=== PATIENT | male | born 1975 | race Caucasian/White ===

== ENCOUNTER → 2019-09-20 09:54 | Outpatient (CLI) | payer OTHER, SELFPAY ==
[2019-09-20 12:57] LABS: Anion Gap 7 (5-15); BUN 18 mg/dL (7-18); Calcium,Total 9.9 mg/dL (8.5-10.1); Chloride 102 mmol/L (98-107); Creatinine, Serum 0.95 mg/dL (0.70-1.30); EST Glomerular Filtration Rate 92 mL/min (>60); Est Glom Filt Rate - Afr Amer 111 mL/min (>60); Glucose 134 mg/dL (74-106); Potassium 4.3 mmol/L (3.5-5.1); Sodium Level 135 mmol/L (136-145)
== END ==
PROVIDERS: PCP Family Medicine; Visit Provider Family Medicine
DX: E11.9 Type 2 diabetes mellitus without complications (principal)
CPT/HCPCS: 36415; 80048

== ENCOUNTER → 2020-03-18 11:56 | Outpatient (CLI) | payer SELFPAY ==
[2015-07-21 08:45] VITALS: BMI 37.2
[2020-03-18 16:01] LABS: AST(SGOT) 24 U/L (15-37); Alanine Aminotransfer ALT/SGPT 60 U/L (16-61); Albumin, Serum 3.9 g/dL (3.2-5.0); Alkaline Phosphatase 224 U/L (45-117); Anion Gap 8 (5-15); BUN 14 mg/dL (7-18); BUN/Creat Ratio 15.6 RATIO (10-20); Calcium,Total 9.9 mg/dL (8.5-10.1); Chloride 99 mmol/L (98-107); EST Glomerular Filtration Rate 98 mL/min (>60); Est Glom Filt Rate - Afr Amer 118 mL/min (>60); Globulin 4.1 g/dL (2.2-4.2); Glucose 171 mg/dL (74-106); Potassium 3.7 mmol/L (3.5-5.1); Rheumatoid Factor < 10.0 IU/mL (<15); Sodium Level 136 mmol/L (136-145); Thyroid Stim Hormone (TSH) 1.11 uIU/mL (0.358-3.74)
[2020-03-18 16:07] LABS: Erythrocyte Sedimentation Rate 18 mm/hr (0-15)
[2020-03-20 16:08] LABS: Anti-Centromere B Ab <0.2 AI (0.0-0.9); Anti-Chromatin <0.2 AI (0.0-0.9); Anti-Jo <0.2 AI (0.0-0.9); Anti-Scleroderma-70 AB <0.2 AI (0.0-0.9); Anti-ribosomal P Antibodies <0.2 AI (0.0-0.9); RNP Ab 0.2 AI (0.0-0.9); SJOGREN'S Anti-SS-A test < 0.2 AI (0.0-0.9); SJOGREN'S Anti-SS-B test < 0.2 AI (0.0-0.9); Smith Ab <0.2 AI (0.0-0.9); Smith/RNP Ab <0.2 AI (0.0-0.9)
[2020-03-20 18:44] LABS: Anti-dsDNA Ab 1 IU/mL (0-9)
[2020-03-21 08:40] LABS: CCP IgG Antibodies 28 units (0-19)
== END ==
PROVIDERS: PCP Family Medicine; Visit Provider Family Medicine
DX: M06.4 Inflammatory polyarthropathy (principal)
CPT/HCPCS: 36415; 80053; 84443; 85652; 86038; 86140; 86200; 86225; 86235; 86431

== ENCOUNTER → 2023-06-13 | Outpatient (CLI) | payer OTHER, SELFPAY ==
[2023-06-13 07:40] LABS: Absolute Lymphocyte Count 1.69 X10^3/uL (0.83-4.51); Absolute Neutrophil Count 3.4 X10^3/uL (2.0-7.7); Basophil# 0.05 X10^3/uL; Basophil% 0.9 % (0-1); Eosinophil# 0.07 X10^3/uL; Eosinophils% 1.2 % (0-5); Hemoglobin 14.8 g/dL (13.0-16.5); Lymphocyte # 1.69 X10^3/ul (0.83-4.51); Lymphocyte % 29.6 % (19-41); Mean Corp Hgb Conc 33.6 g/dL (32-36); Mean Corpuscular Hgb 28.5 pg (27.0-32.0); Mean Corpuscular Volume 84.8 fL (80-94); Mean Platelet Vol. 10.7 fl (6.2-12.0); Monocyte# 0.45 X10^3/uL; Monocyte% 7.9 % (0-10); NRBC Flagged by Analyzer 0 % (0-5); Neutrophil # 3.43 X10^3/uL (2.7-7.7); Platelet Count 201 K/mm3 (150-450); RBC Distribution Width CV 12.4 % (11.6-14.6); RBC Distribution Width SD 38.3 fl (35.1-43.9); Red Blood Count 5.19 M/mm3 (4.6-6.2); White Blood Count 5.7 K/mm3 (4.4-11.0)
[2023-06-13 08:14] LABS: ALB/GLOB Ratio 1.4 RATIO (0.9-2.4); AST(SGOT) 43 U/L (15-37); Alanine Aminotransfer ALT/SGPT 95 U/L (16-61); Albumin, Serum 4.6 g/dL (3.2-5.0); Alkaline Phosphatase 97 U/L (45-117); Anion Gap 4 (5-15); BUN 25 mg/dL (7-18); BUN/Creat Ratio 28.3 RATIO (10-20); Calcium,Total 9.7 mg/dL (8.5-10.1); Chloride 105 mmol/L (98-107); Cholesterol 213 mg/dL (200); Creatinine, Serum 0.88 mg/dL (0.70-1.30); EST Glomerular Filtration Rate 98 mL/min (>60); Est Glom Filt Rate - Afr Amer 119 mL/min (>60); Globulin 3.4 g/dL (2.2-4.2); Glucose 162 mg/dL (74-106); High Density Lipoprotein 43 mg/dL; Potassium 4.5 mmol/L (3.5-5.1); Sodium Level 135 mmol/L (136-145); Triglycerides 160 mg/dL; Very Low Density Lipoprotein 32 mg/dL (5-40)
== END | disposition home or self-care (01) ==
LOC: LAB 07:23
PROVIDERS: PCP Nurse Practitioner Family; Referring Provider Nurse Practitioner Family; Visit Provider Nurse Practitioner Family
DX: Z00.01 Encounter for general adult medical examination with abnormal findings (principal); E11.9 Type 2 diabetes mellitus without complications
CPT/HCPCS: 36415; 80053; 80061; 85025

== ENCOUNTER 2023-07-20 07:00 | Emergency (ER) | payer OTHER, SELFPAY ==
[2023-07-20 07:01] VITALS: BP 154/91; PULSE 78; RESP 16; TEMP 36.6; O2SAT 97; BMI 35.1
--- OUTSIDE RECORDS SUMMARY | 2023-07-20 07:26 | XMS RPT_ITS | CCD ---
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 Name Role Phone KHADRA GARCIA Admitting Unavailable KHADRA GARCIA Attending Unavailable KHADRA GARCIA Primary Care Unavailable SALEEM HANNON MD Attending Unavailable Problems Problem Classification Problem Date Documented Da te Episodic/Chronic Immunizations and screening for infectious disease (1 source) Encounter for observation for suspected exposure to other biological agents ruled out; Translations: [Encounter for observation for suspected exposure to other biological agents ruled out] Onset: 10-17-2019 Episodic Malaise and fatigue (2 sources) Other fatigue; Translations: [Other fatigue] Onset: 10-17-2019 Episodic Open wounds of extremities (1 source) Laceration of forearm; Translations: [Laceration without foreign body of unspecified forearm, initial encounter] Onset: 01-21-2023 Episodic Vital Signs Date Time Vital Sign Value Performing Clinician Faci lity 01-21-2023 10:07-0400 Blood Pressure Location SALEEM HANNON MD [facility] 01-21-2023 10:07-0400 Body temperature 97.7 [degF] SALEEM HANNON MD [facility] 01-21-2023 10:07-0400 Diastolic Blood Pressure Non-Invasive 95 1 SALEEM HANNON MD [facility] 01-21-2023 10:07-0400 Heart rate 71 /min SALEEM HANNON MD [facility] 01-21-2023 10:07-0400 Respiratory rate 16 /min SALEEM HANNON MD [facility] 01-21-2023 10:07-0400 Systolic Blood Pressure Non-Invasive 160 1 SALEEM HANNON MD [facility] Encounters Encounter Date Encounter Type Care Provider Facility Start: 01-21-2023 End: 01-21-2023 Emergency department patient visit SALEEM HANNON MD Facility:B Start: 01-21-2023 End: 01-21-2023 Emergency department patient visit SALEEM HANNON MD [facility] Start: 10-17-2019 End: 10-17-2019 Patient encounter procedure KHADRA Wasserman [facility] Immunizations Immunization Date Immunization Notes Care Provider Fa cility 01-21-2023 tetanus toxoid, redu torie diphtheria toxoid, and acellular pertussis vaccine, adsorbed SALEEM HANNON MD [facility] Payers Date Payer Category Payer Unknown [id number] 1975 Unknown [id number] Social History Date Type Detail Facility Tobacco smoking status No Smoking Status Entered [facility] Sex Assigned At Male [facility] Functional Status Date Assessment Result Facility 01-21-2023 Functional Status Assistive Device None [facility] Mental Status Date Assessment Result Facility 01-21-2023 Mental Status Oriented x 4 [facility] Discharge instructions 01-21-2023 Note Date & Type Note Facility 01-21-2023 Hospital Discharg e instructions Patient Education 01/21/2023 10:29:36 Wound Care Wound Care Taking proper care of your wound will help it heal. Your healthcare provider may show you how to clean and dress the wound. He or she will also explain how to tell if the wound is healing normally. If you are unsure of how to take care of the wound, be sure to clarify what dressing to use and how often you should change the bandages. Here are the basic steps. A wound that's not healing normally may be dark in color or have white streaks. Wash your hands Tips for washing your hands include: Use liquid soap and lather for 2 minutes. Scrub between your fingers and under your nails. Rinse with warm water, keeping your fingers pointing down. Use a paper towel to dry your hands and to turn off the faucet. Remove the used dressing Here are suggestions for removing the dressing: If dressing changes cause you pain, be sure to take your pain medicine as prescribed by your healthcare provider 30 minutes before dressing changes. Set up your supplies. Put on disposable gloves if you re dressing a wound for someone else or your wound is infected. Loosen the tape by pulling gently toward the wound. Gently take off the old dressing. If the dressing is stuck to the wound, moisten it with saline (if available) or clean water. If you have a drain or tube in the wound, be careful not to pull on it. Remove the dressing 1 layer at a time and put it in a plastic bag. Seal the bag and put it in the trash. Remove your gloves. Inspect and dress the wound Check the wound carefully: Each time you change the dressing, check the wound carefully to be sure it s healing normally by making sure your wound appears to be pink and moist, and is free of infection. Wash your hands again. Put on a new pair of gloves. Clean and dress the wound as directed by your healthcare provider or nurse. Don't put anything in the wound that is not prescribed or directed by your healthcare provider. If you have a drain or tube, be careful not to pull on it. Make sure to secure the drain or tube as well. Put all unused supplies in a clean plastic bag. Seal the bag and store it in a clean, dry area between dressing changes. Be sure to wash your hands again. Call your healthcare provider Call your healthcare provider if you see any of the following signs of a problem: Bleeding that soaks the dressing Earl fluid weeping from the wound Increased drainage or drainage that is yellow, yellow-green, or foul-smelling Increased swelling or pain, or redness or swelling in the skin around the wound A change in the color of the wound, or if streaks develop in a direction away from the wound The area between any stitches opens up An increase in the size of the wound A fever of 100.4 F (38 C) or higher, or as directed by your healthcare provider Chills, increased fatigue, or a loss of appetite [id number] [employer]. [address] [place] [address]. All rights reserved. This information is not intended as a substitute for professional medical care. Always follow your healthcare professional's instructions. 01/21/2023 10:25:40 LACERATION, Extrem (suture, staple or tape) Extremity Laceration (Sutures, Lulú, or Tape) A laceration is a cut through the skin. This will usually require stitches (sutures) or lulú if it is deep. Minor cuts may be treated with surgical tape closures. Home care The following guidelines will help you care for your laceration at home: Keep the wound clean and dry. If a bandage was applied and it becomes wet or dirty, replace it. Otherwise, leave it in place for the first 24 hours, then change it once a day or as directed. If stitches or lulú were used, clean the wound daily: After removing the bandage, wash the area with soap and water. Use a wet cotton swab to loosen and remove any blood or crust that forms. After cleaning, keep the wound clean and dry. Talk with your doctor before applying any antibiotic ointment to the wound. Reapply the bandage. You may remove the bandage to shower as usual after the first 24 hours, but do not soak the area in water (no swimming) until the stitches or lulú are removed. If surgical tape closures were used, keep the area clean and dry. If it becomes wet, blot it dry with a towel. The doctor may prescribe an antibiotic cream or ointment to prevent infection. Do not stop taking this medication until you have finished the prescribed course or the doctor tells you to stop. The doctor may also prescribe medications for pain. Follow the doctor s instructions for taking these medications. If you have chronic liver or kidney disease or ever had a stomach ulcer or GI bleeding, talk with your doctor before using these medicines. Follow-up care Follow up with your health care provider. Most skin wounds heal within ten days. However, an infection may sometimes occur despite proper treatment. Therefore, check the wound daily for the signs of infection listed below. Stitches and lulú should be removed within 7 14 days. If surgical tape closures were used, you may remove them after 10 days, if they have not fallen off by then. Notify your doctor if you notice persistent numbness or weakness in the injured extremity. (Note: A radiologist will review any X-rays that were taken. We will notify you of any new findings that may affect your care.) When to seek medical advice Call your health care provider right away if any of these occur: Increasing pain in the wound Redness, swelling, or pus coming from the wound Fever of 100.4 F (38 C) or higher, or as directed by your health care provider If stitches or lulú come apart or fall out before your next appointment If the surgical tape closures fall off within seven days, or the wound edges re-open Bleeding not controlled by direct pressure [id number] [employer]. [address] [place] [address]. All rights reserved. This information is not intended as a substitute for professional medical care. Always follow your healthcare professional's instructions. Follow Up Care 01/21/2023 10:04:23 With:TRACI OLSEN DO Address: [address] [place] [id number] [phone] When: Unknown Comments:Follow-up in 10 days for suture removal. [facility] Emergency department Discharge summary 01-21-2023 Note Date & Type Note Facility 01-21-2023 Emergency department Discharge summary Discharge Instructions Thank you for allowing [facility] to assist you with your healthcare needs. The following is important discharge information regarding your hospital visit. Diagnosis from Today's Visit Laceration of forearm Arm laceration What to Do Next Instructions from Your Care Team No qualifying data available. Post Acute Orders No qualifying data available. You Need to Schedule the Following Appointments Follow Up with TRACI OLSEN DO When Why: Follow-up in 10 days for suture removal. Where: [address] [place] [phone] Allergies NKA Immunizations This Visit Given Vaccine Datetetanus/diphth/pertuss (Tdap) adult/adol 01/21/2023 Medications Please ask your primary doctor or pharmacist before taking any other medication not listed, including over the counter drugs, herbal medications, vitamins and or supplements as they may interact with your home medications. Please take this list to your next doctor s visit. Bring all medications you take, including over the counter medications, herbals and other supplements with you to your doctor s visit. Patients and families are reminded to discard old lists and to update any records with all medication providers or retail pharmacies. Education Materials Wound Care Taking proper care of your wound will help it heal. Your healthcare provider may show you how to clean and dress the wound. He or she will also explain how to tell if the wound is healing normally. If you are unsure of how to take care of the wound, be sure to clarify what dressing to use and how often you should change the bandages. Here are the basic steps. A wound that's not healing normally may be dark in color or have white streaks. Wash your hands Tips for washing your hands include: Use liquid soap and lather for 2 minutes. Scrub between your fingers and under your nails. Rinse with warm water, keeping your fingers pointing down. Use a paper towel to dry your hands and to turn off the faucet. Remove the used dressing Here are suggestions for removing the dressing: If dressing changes cause you pain, be sure to take your pain medicine as prescribed by your healthcare provider 30 minutes before dressing changes. Set up your supplies. Put on disposable gloves if you re dressing a wound for someone else or your wound is infected. Loosen the tape by pulling gently toward the wound. Gently take off the old dressing. If the dressing is stuck to the wound, moisten it with saline (if available) or clean water. If you have a drain or tube in the wound, be careful not to pull on it. Remove the dressing 1 layer at a time and put it in a plastic bag. Seal the bag and put it in the trash. Remove your gloves. Inspect and dress the wound Check the wound carefully: Each time you change the dressing, check the wound carefully to be sure it s healing normally by making sure your wound appears to be pink and moist, and is free of infection. Wash your hands again. Put on a new pair of gloves. Clean and dress the wound as directed by your healthcare provider or nurse. Don't put anything in the wound that is not prescribed or directed by your healthcare provider. If you have a drain or tube, be careful not to pull on it. Make sure to secure the drain or tube as well. Put all unused supplies in a clean plastic bag. Seal the bag and store it in a clean, dry area between dressing changes. Be sure to wash your hands again. Call your healthcare provider Call your healthcare provider if you see any of the following signs of a problem: Bleeding that soaks the dressing Earl fluid weeping from the wound Increased drainage or drainage that is yellow, yellow-green, or foul-smelling Increased swelling or pain, or redness or swelling in the skin around the wound A change in the color of the wound, or if streaks develop in a direction away from the wound The area between any stitches opens up An increase in the size of the wound A fever of 100.4 F (38 C) or higher, or as directed by your healthcare provider Chills, increased fatigue, or a loss of appetite [id number] [employer]. [address] [place] [address]. All rights reserved. This information is not intended as a substitute for professional medical care. Always follow your healthcare professional's instructions. Extremity Laceration (Sutures, Midkiff, or Tape) A laceration is a cut through the skin. This will usually require stitches (sutures) or lulú if it is deep. Minor cuts may be treated with surgical tape closures. Home care The following guidelines will help you care for your laceration at home: Keep the wound clean and dry. If a bandage was applied and it becomes wet or dirty, replace it. Otherwise, leave it in place for the first 24 hours, then change it once a day or as directed. If stitches or lulú were used, clean the wound daily: After removing the bandage, wash the area with soap and water. Use a wet cotton swab to loosen and remove any blood or crust that forms. After cleaning, keep the wound clean and dry. Talk with your doctor before applying any antibiotic ointment to the wound. Reapply the bandage. You may remove the bandage to shower as usual after the first 24 hours, but do not soak the area in water (no swimming) until the stitches or lulú are removed. If surgical tape closures were used, keep the area clean and dry. If it becomes wet, blot it dry with a towel. The doctor may prescribe an antibiotic cream or ointment to prevent infection. Do not stop taking this medication until you have finished the prescribed course or the doctor tells you to stop. The doctor may also prescribe medications for pain. Follow the doctor s instructions for taking these medications. If you have chronic liver or kidney disease or ever had a stomach ulcer or GI bleeding, talk with your doctor before using these medicines. Follow-up care Follow up with your health care provider. Most skin wounds heal within ten days. However, an infection may sometimes occur despite proper treatment. Therefore, check the wound daily for the signs of infection listed below. Stitches and lulú should be removed within 7 14 days. If surgical tape closures were used, you may remove them after 10 days, if they have not fallen off by then. Notify your doctor if you notice persistent numbness or weakness in the injured extremity. (Note: A radiologist will review any X-rays that were taken. We will notify you of any new findings that may affect your care.) When to seek medical advice Call your health care provider right away if any of these occur: Increasing pain in the wound Redness, swelling, or pus coming from the wound Fever of 100.4 F (38 C) or higher, or as directed by your health care provider If stitches or lulú come apart or fall out before your next appointment If the surgical tape closures fall off within seven days, or the wound edges re-open Bleeding not controlled by direct pressure [id number] [employer]. [address] [place] [address], [place] [address]. All rights reserved. This information is not intended as a substitute for professional medical care. Always follow your healthcare professional's instructions. Additional Information VACCINATE! IT SAVES LIVES! Members of the community who have not yet received the COVID-19 vaccine and would like to receive it can visit one of [facility] vaccine clinics. There are many vaccine clinic locations within the [facility]. For locations and available times, please visit [email or web address] [email or web address] It is important to note that some COVID mobile vaccine clinics are held outdoors and may be canceled in rainy or stormy conditions. To learn more about pediatric vaccinations (ages 5-11), we invite you to visit the [facility] webpage. [email or web address] [email or web address]-[email or web address] [email or web address]-[email or web address].html To learn more about the COVID-19 vaccine, we invite you to visit the CDC website for a list of frequently asked questions. https://www.cdc.gov/coronavirus/2 019-ncov/vaccines/faq.html [employer] Patient Portal Access Instructions: Stay connected with your healthcare team and access your personal medical information anytime with the [employer] Patient Portal. If you would like a full copy of your medical records please contact the [facility] Medical Records Department Monday through Monday between 8a.m. and 4:30p.m. Please follow the directions below to access the portal: 1.Access the email account you provided upon registration to the hospital.2.Look for an invitation email from [facility].3.Open the email and access the invitation link: Accept Invitation to [employer]4.Fill in the required aguilar to create your account. Sign into [email or web address] inc with your username and password that you created in the above steps to stay up to date. You can then view a summary of results, a summary of your visits, and the ability to download your summaries to your computer or send the information securely to a physician. Remember that your healthcare information is confidential, so carefully consider who you will allow to register on the [employer] Patient Portal for access to your information. You can also access the [employer] Patient Portal on the [employer]. Simply click on Health Records under Health Data and then click on the [employer] logo. HOW TO SAFELY DISPOSE OF PRESCRIPTION MEDICATIONS Please use one of the following methods to safely dispose of your unused medications. 1.Use a drug disposal kit: the drug disposal pouch allows you to safely discard your old and unused drugs. Ask your nurse to give you one when you are discharged.2.Visit a local take-back location: Many local pharmacies and police departments have programs that collect old and unwanted prescription drugs. Call your local pharmacy or go to http://Vonjour.PromoteSocial/5E4Tq0l to find one close to you.3.Make use of household items: Use cat litter or old coffee grounds to dispose medications if other options are not available. Mix your drugs with these household products, seal them in an airtight container and throw it into the garbage. Call [facility]: [phone] to be sure your drugs can be disposed of in this way. Some medicines may require a different approach.4.Never flush your medications down the toilet. IF YOU HAVE BEEN PRESCRIBED AN OPIOIDS FOR PAIN If you have been prescribed an opioid (such as hydrocodone, oxycodone or morphine), it is critical to understand the possible side effects and risks of opioid pain medications. Even when taken as directed, opioids can have several side effects including: Tolerance, meaning you might need to take more of a medication for the same pain relief. Nausea, vomiting and/or constipation. Sleepiness, dizziness, dry mouth, confusion, depression or itching. Physical dependence, meaning you have withdrawal symptoms when a medication is stopped ? this can develop within a few days. KNOW YOUR RESPONSIBILITIES It is important to know exactly how much and how often to take the opioid pain medications you are prescribed. Never take opioids in higher amounts or more often than prescribed. Do not combine opioids with alcohol or other drugs that cause drowsiness, such as benzodiazepines, also known as benzos, including diazepam and alprazolam, muscle relaxants or sleep aids. Never sell or share prescription opioids. This is illegal. Store opioids in a secure place and out of reach of others (including children, family, friends and visitors). The last page(s) of this document has been signed and retained as a CHART COPY Signatures Patient Education Materials Wound Care LACERATION, Extrem (suture, staple or tape) Medication Leaflets My discharge plan and instructions have been reviewed and explained to me and I,ADAM HART understand my current condition and have read and understand these discharge instructions. I have received a written copy of the plan/instructions. If I have questions, I am aware that I should contact my doctor. 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: Date/Time: Relationship to Patient: ____ Witness Name/Signature: Date/Time: [facility] Evaluation + Plan note Note Date & Type Note Facility Evaluation + Plan note No data available for this section [facility] Summary Purpose Family History No Family History Records FoundNo Family History Records Found Advance Directives No Advanced Directives Records FoundNo Advanced Directives Records Found Additional Source Comments (unrecognized sect ion and content) No Status Records FoundNo Status Records Found INFORMATION SOURCE (unrecogn ized section and content) DATE CREATED AUTHOR AUTHOR'S ORGANIZ ATION 01/23/[address] [facility] ([place]) Patient Care team informatio n (unrecognized section and content) Care Team Personnel Name: SALEEM HANNON MD Position: ED Physician Member Role: ED Physician Address: Address: [address] [place] [id number] Name: Marie Zamarripa RN Position: AO RN Member Role: RN FOR RECORDS PERTAINING TO PATIENTS WHO ARE OR HAVE BEEN ENROLLED IN A CHEMICAL DEPENDENCY/SUBSTANCEABUSE PROGRAM, SOME INFORMATION MAY BE OMITTED. This clinical summary was aggregated from multiple sources. Caution should be exercised in using it in the provision of clinical care. This summary normalizes information from multiple sources, and as a consequence, information in this document may materially change the coding, format and clinical context of patient data. In addition, data may be omitted in some cases. CLINICAL DECISIONS SHOULD BE BASED ON THE PRIMARY CLINICAL RECORDS. [facility] [employer] provides no warranty or guarantee of the accuracy or completeness of information in this document.
--- NOTE | 2023-07-20 07:34 | EKG12_ITS ---
Test Reason : DYSRHYTHMIA Blood Pressure : / mmHG Vent. Rate : 066 BPM Atrial Rate : 066 BPM P-R Int : 224 ms QRS Dur : 102 ms QT Int : 396 ms P-R-T Axes : 046 012 059 degrees QTc Int : 415 ms Sinus rhythm with 1st degree A-V block Otherwise normal ECG Confirmed by HARLEEN ANN, NABILA ([id number]), editorial writer CHANG DELA CRUZ ([id number]) on 07/21/2023 7:18:24 AM Referred By: WILTON Confirmed By:NABILA CANSECO MD
--- NOTE | 2023-07-20 07:34 | CT_ITS ---
STUDY: CT ABDOMEN AND PELVIS WITH CONTRAST REASON FOR EXAM: Male, 48 years old. Abdominal pain -- IV PO Contrast RADIATION DOSAGE (If Supplied By Facility): CTDIvol = ( 18.13 ) mGy, DLP = ( 1438.66 ) mGycm TECHNIQUE: IV 100mL Isovue-300 was administered. Transaxial images were obtained from the dome of the diaphragm to the symphysis pubis in the arterial, nephrographic and excretory phases. Multiplanar coronal and sagittal images were reformatted. Individualized Dose Optimization Techniques Were Used For This CT. COMPARISON: Prior study dated: 06/27/2015. FINDINGS: The visualized lung bases are unremarkable. The visualized portions of the heart are within normal limits. Normal liver. There is non-visualization of the gallbladder, which may be secondary to either contraction or a prior cholecystectomy. Borderline spleen in size. Normal pancreas. Normal bilateral adrenal glands. Normal visualized stomach. Normal in caliber small bowel loops. Sigmoid diverticulosis without evidence of acute diverticulitis. There are surgical clips in the region of the appendix consistent with a prior appendectomy. Probable small left parapelvic cyst. No evidence of hydronephrosis or urinary tract stones. There is mild atherosclerotic calcification of the abdominal aorta, without a demonstrated aneurysm. No retroperitoneal adenopathy. Normal urinary bladder. Normal abdominal wall. Narrowing of L5-S1 disc space. Bilateral spondylolysis at L5 with grade 1 anterolisthesis of L5 over S1. CT/Abdomen/Pelvis WITH Contrast IMPRESSION: 1. No focal acute inflammatory process. 2. Mild diverticulosis without evidence of acute diverticulitis. Electronically Signed: Torrey Mejia MD at 9:44 EST ,
--- NOTE | 2023-07-20 07:44 | EX.ED.DYSGE1 ---
HPI History of Present Illness Chief Complaint: Abd Pain Detail of Chief Complaint: Epigastric pain Informant: patient and spouse/S.O. Onset/Context/Timing Onset: Yesterday Narrative Narrative: Patient presents with rather abrupt onset of epigastric pain yesterday afternoon. He states for the past several days he has had some abdominal cramping. Yesterday afternoon he got epigastric pain that has been rather persistent. He states it is not changed with eating. He denies fever or chills. He did not have a bowel movement yesterday but did pass a small amount of gas. He has had a prior cholecystectomy and appendectomy. [facility] Medical History Diabetes Hypertension Home Medications dicyclomine 10 mg capsule 20 mg (2 x 10 mg) PO TIDAC PRN Abdominal Pain ##20 06/27/15 [Rx Last Taken Unknown] lisinopril 2.5 mg tablet 2.5 mg PO DAILY 06/27/15 [History Last Taken Unknown] metformin 500 mg tablet 500 mg PO DAILY 06/27/15 [History Last Taken Unknown] ondansetron 4 mg disintegrating tablet 4 mg PO Q8H PRN PRN Nausea #10 tabs 06/27/15 [Rx Last Taken Unknown] oxycodone-acetaminophen 5 mg-325 mg tablet 1 - 2 tab PO Q6H PRN PRN Pain #30 tabs 07/21/15 [Rx Last Taken Unknown] pantoprazole 40 mg tablet,delayed release (Protonix) 40 mg PO DAILY 4 weeks #28 tabs 07/20/23 [Rx Last Taken Unknown] Allergy/AdvReac Type Severity Reaction Status Date / Time No Known Allergies Allergy Verified 07/20/23 07:04 Surgical History Hx of appendectomy Hx of cholecystectomy Social History Smoking Status: Never smoker ROS ROS ED Constitutional Constitutional ED: Denies chills or fever(s) Eyes Eyes: Denies discharge from eye(s) ENT ENT ED: Denies discharge from eye(s), rhinorrhea or sore throat Cardiovascular Cardiovascular: Denies chest pain or palpitations Respiratory/Chest Respiratory/Chest: Denies cough or dyspnea Gastrointestinal Gastrointestinal: Reports abdominal pain; Denies diarrhea, nausea or vomiting Genitourinary Genitourinary ED: Denies dysuria Musculoskeletal Musculoskeletal: Denies back pain or extremity pain Integumentary Denies Abrasions or rash Neurologic Neurologic: Denies headache(s) or weakness Psychiatric Psychiatric: Denies anxiety or depression Allergic/Immunologic Allergic/Immunologic ED: Denies lip swelling or urticaria EXAM Physical Exam Const Vital Signs: 07/20/23 07:01 Temperature 97.8 F Temperature Source Oral Pulse Rate 78 Respiratory Rate 16 Blood Pressure 154/91 H Blood Pressure Mean 112 Pulse Ox 97 Oxygen Delivery Method Room Air Positive well nourished and well developed General Appearance ED: well developed HEENT Reports moist mucous membranes Eyes EOMs intact bilaterally Chest Wall inspection of chest normal and palpation of chest normal Resp normal respiratory effort and clear to auscultation bilaterally Cardio regular rate and regular rhythm GI GI Narrative: Abdomen soft with moderate tenderness in the epigastrium. No guarding or rebound. Active bowel sounds are noted. Extremity normal to inspection Neuro oriented x3 and no sensory deficits noted Motor Exam: strength 5/5 throughout Psych mental status grossly normal Skin no rashes or lesions noted MDM MDM MDM Narrative Medical decision making narrative: IV line established. Patient given morphine and Zofran for pain control. EKG obtained to evaluate for cardiac arrhythmia/ischemia. Labwork obtained to evaluate for leukocytosis, anemia, and electrolyte derangement. Urinalysis obtained to evaluate for infection/hematuria. CT scan of the abdomen pelvis with p.o. and IV contrast obtained to evaluate for bowel obstruction, liver or pancreas abnormalities. History & Record Review Discussion w/independent historian: Patient and Significant other Additional record(s) reviewed:: Prior ED visit and Prior labs Lab Data Attestation: I reviewed the patient's lab results. Labs: Laboratory Results - last 24 hr 07/20/23 07/20/23 07/20/23 07:05 08:00 10:10 WBC 8.5 RBC 4.89 Hgb 14.2 Hct 41.9 MCV 85.7 MCH 29.0 MCHC 33.9 RDW Std Deviation 39.8 RDW Coeff of Praveen 12.8 Plt Count 203 MPV 10.7 Immature Gran % (Auto) 0.200 Neut % (Auto) 74.4 H Lymph % (Auto) 15.9 L [place] % (Auto) 8.3 Eos % (Auto) 0.6 Baso % (Auto) 0.6 Absolute Neuts (auto) 6.3 Absolute Lymphs (auto) 1.35 Nucleated RBC % 0 Sodium 137 Potassium 4.2 Chloride 101 Carbon Dioxide 29.0 Anion Gap 7 BUN 19 H Creatinine 1.07 Estim Creat Clear Calc 97.03 Est GFR (MDRD) Af Amer 95 Est GFR (MDRD) Non-Af 79 BUN/Creatinine Ratio 17.8 Glucose 149 H Calcium 10.5 H Total Bilirubin 0.90 Direct Bilirubin 0.20 AST 49 H ALT 127 H Alkaline Phosphatase 138 H Troponin I High Sens 4 Total Protein 7.9 Albumin 4.2 Globulin 3.7 Lipase 42 Urine Color Yellow Urine Clarity Clear Urine pH 7.0 Ur Specific [place] 1.010 Urine Protein 30 H Urine Glucose (UA) Normal Urine Ketones Negative Urine Occult Blood Negative Urine Nitrite Negative Urine Bilirubin Negative Urine Urobilinogen Normal Ur Leukocyte Esterase Negative Urine RBC 0 SEEN Urine WBC 0 SEEN Ur Squamous Epith Cells 0 SEEN Urine Bacteria 0 SEEN Urine Mucus 0 SEEN Radiography Chest X-Ray - ED: 1 View, Read by ED Physician, Chronic Changes and No Infiltrates Diagnostic Testing: Clinical Impression(s) from Imaging Studies Abdomen/Pelvis CT 07/20/23 07:34 IMPRESSION: 1. No focal acute inflammatory process. 2. Mild diverticulosis without evidence of acute diverticulitis. Electronically Signed: Torrey Mejia MD at 9:44 EST Reading Location ID and State: [address] [place] [address] Tel , Service support , Chest X-Ray 07/20/23 08:15 IMPRESSION: No radiographic evidence of acute cardiopulmonary disease. Electronically Signed: Torrey Mejia MD at 8:39 EST , EKG Initial EKG: Attestation: I personally reviewed and interpreted this EKG as follows: Interpretation: Sinus Rhythm (Sinus at 66 with no acute ischemia.) Treatment and Re-Evaluation :: CBC was normal white count 8.5 with 74% neutrophils. Hemoglobin normal at 14.2. Chemistry studies unremarkable. Glucose is 149. Alk phos is 138, ALT 127, AST 49. On review of prior records it appears these numbers have been waxing and waning for quite some time. Lipase is normal. Troponin is normal at 4. Urinalysis reveals no acute infection. CT scan reveals no acute inflammatory process. Mild diverticulosis is noted without evidence of diverticulitis. Portable chest x-ray per my interpretation was chronic changes with no infiltrate. Radiology interpretation reviewed and agrees. Test results discussed with patient and spouse at bedside. He does have focal tenderness in the epigastrium. I will start him on Protonix and have him follow-up. Return instructions given. Discharge Plan Triage Chief Complaint: Abd Pain ED Provider: Carolyn Briggs Dx/Rx/DC Orders Clinical Impression: Abdominal pain, epigastric Instructions: ED Epigastric Pain Uncertain Cause Prescriptions: New pantoprazole [Protonix] 40 mg tablet,delayed release (DR/EC) 40 mg PO DAILY 28 Days Qty: 28 0RF No Action metformin 500 MG tablet 500 mg PO DAILY lisinopril 2.5 MG tablet 2.5 mg PO DAILY ondansetron 4 MG tablet 4 mg PO Q8H PRN PRN (Reason: Nausea) Qty: 10 0RF dicyclomine 10 MG capsule 20 mg PO TIDAC PRN (Reason: Abdominal Pain) Qty: 20 0RF Rx Instructions: causes drowsiness oxycodone-acetaminophen 1 TABLET tablet 1 - 2 tab PO Q6H PRN PRN (Reason: Pain) Qty: 30 0RF Primary Care Provider: Caroline Donovan Referrals: Caroline Donovan, AMUSEMENT OR RECREATION CARD CHECKER-C [Primary Care Provider] - 1-2 Weeks Disposition Disposition: Home, Self Care
[2023-07-20 07:50] LABS: Absolute Lymphocyte Count 1.35 X10^3/uL (0.83-4.51); Absolute Neutrophil Count 6.3 X10^3/uL (2.0-7.7); Basophil# 0.05 X10^3/uL; Basophil% 0.6 % (0-1); Eosinophil# 0.05 X10^3/uL; Eosinophils% 0.6 % (0-5); Hematocrit 41.9 % (40-54); Hemoglobin 14.2 g/dL (13.0-16.5); Lymphocyte # 1.35 X10^3/ul (0.83-4.51); Lymphocyte % 15.9 % (19-41); Mean Corp Hgb Conc 33.9 g/dL (32-36); Mean Corpuscular Volume 85.7 fL (80-94); Mean Platelet Vol. 10.7 fl (6.2-12.0); Monocyte% 8.3 % (0-10); NRBC Flagged by Analyzer 0 % (0-5); Neutrophil % 74.4 % (47-70); Platelet Count 203 K/mm3 (150-450); RBC Distribution Width CV 12.8 % (11.6-14.6); RBC Distribution Width SD 39.8 fl (35.1-43.9); Red Blood Count 4.89 M/mm3 (4.6-6.2); White Blood Count 8.5 K/mm3 (4.4-11.0)
[2023-07-20] MEDS: Morphine 4 MG/ML Syringe IV (07:57)
[2023-07-20] MEDS: 0.9% Normal Saline (1000mL) 1,000 ML 150 ML IV (07:57)
[2023-07-20] MEDS: Ondansetron 4 MG/2 ML Vial IV (07:57)
[2023-07-20 08:04] LABS: AST(SGOT) 49 U/L (15-37); Alanine Aminotransfer ALT/SGPT 127 U/L (16-61); Albumin, Serum 4.2 g/dL (3.2-5.0); Alkaline Phosphatase 138 U/L (45-117); Anion Gap 7 (5-15); BUN 19 mg/dL (7-18); BUN/Creat Ratio 17.8 RATIO (10-20); Calcium,Total 10.5 mg/dL (8.5-10.1); Chloride 101 mmol/L (98-107); Creatinine, Serum 1.07 mg/dL (0.70-1.30); EST Glomerular Filtration Rate 79 mL/min (>60); Est Glom Filt Rate - Afr Amer 95 mL/min (>60); Estimated Creatinine Clearance 97.03 ml/min; Globulin 3.7 g/dL (2.2-4.2); Glucose 149 mg/dL (74-106); Lipase 42 U/L (13-75); Potassium 4.2 mmol/L (3.5-5.1); Protein, Total 7.9 g/dL (6.4-8.2); Sodium Level 137 mmol/L (136-145)
[2023-07-20 08:08] LABS: Bacteria 0 SEEN /hpf (None Seen); Mucous, Urine 0 SEEN /hpf (<or=2+); Red Blood Cells-Urine 0 SEEN /hpf (0-5); Squamous Epithelial Cells - UA 0 SEEN /hpf (0-5); White Blood Cells 0 SEEN /hpf (0-5)
--- NOTE | 2023-07-20 08:15 | RAD_ITS ---
INDICATION: pain EXAMINATION/TECHNIQUE: X-RAY - XR Chest 1 View COMPARISON: No relevant prior comparison study available FINDINGS: LINES/DEVICES: None. LUNGS: No consolidation, edema or effusion. No pneumothorax. MEDIASTINUM AND CARDIOVASCULAR STRUCTURES: Cardiac silhouette not enlarged. Central airways and mediastinal contour are unremarkable. BONES AND SOFT TISSUES: Unremarkable. RAD/Chest 1 View (Portable) IMPRESSION: No radiographic evidence of acute cardiopulmonary disease. Electronically Signed: Torrey Mejia MD at 8:39 EST ,
[2023-07-20 08:17] LABS: Color, Urine Yellow (Yellow); Glucose, Dipstick Normal (Normal); Ketone-Dipstick Negative (Negative); Leukocyte Esterase-Dipstick Negative /ul (Negative); Nitrite-Dipstick Negative (Negative); Occult Blood-Urine Negative /ul (Negative); Protein-Dipstick 30 mg/dl (Negative); Urine Bilirubin Dipstick Negative (Negative); Urine Clarity Clear (Clear); Urine Urobilinogen Normal (Normal)
[2023-07-20 10:32] LABS: Troponin-I HS 4 pg/mL (3.0-78.0)
== END 2023-07-20 11:01 | disposition home or self-care (01) ==
PROVIDERS: Emergency Provider Emergency Medicine; PCP Nurse Practitioner Family; Visit Provider Emergency Medicine
DX: R10.13 Epigastric pain (principal); E11.9 Type 2 diabetes mellitus without complications; Z90.49 Acquired absence of other specified parts of digestive tract; I10 Essential (primary) hypertension; Z79.899 Other long term (current) drug therapy; Z79.84 Long term (current) use of oral hypoglycemic drugs
CPT/HCPCS: 71045; 74177; 80048; 80076; 81001; 83690; 84484; 85025; 93005; 96361; 96374; 96375; 99284; J7030; Q9965; A4216; J2405

== ENCOUNTER → 2023-08-23 | Outpatient (CLI) | payer OTHER, SELFPAY ==
--- OUTSIDE RECORDS SUMMARY | 2023-08-23 09:39 | XMS RPT_ITS | CCD ---
Author Name Unknown Address [address] [place] [id number] Organization [facility] Care Team Providers Care Plastic Press Operator Name Role Phone KHADRA GARCIA Admitting Unavailable [...] 10:07-0400 Blood Pressure Location SALEEM HANNON MD [facility] 01-21-2023 10:07-0400 Body temperature 97.7 [degF] SALEEM HANNON MD [facility] 01-21-2023 10:07-0400 Diastolic Blood Pressure Non-Invasive 95 1 SALEEM HANNON MD [facility] 01-21-2023 10:07-0400 Heart rate 71 /min SALEEM HANNON MD [facility] 01-21-2023 10:07-0400 Respiratory rate 16 /min SALEEM HANNON MD [facility] 01-21-2023 10:07-0400 Systolic Blood Pressure Non-Invasive 160 1 SALEEM HANNON MD [facility] Encounters Encounter Date Encounter Type Care Provider Facility Start: 01-21-2023 End: 01-21-2023 Emergency department patient visit SALEEM HANNON MD Facility:B Start: 01-21-2023 End: 01-21-2023 Emergency department patient visit SALEEM HANNON MD [facility] Start: 10-17-2019 End: 10-17-2019 Patient encounter procedure KHADRA Wasserman RADHA [facility] Immunizations Immunization Date Immunization Notes Care Provider Fa cility 01-21-2023 tetanus toxoid, redu torie diphtheria toxoid, and acellular pertussis vaccine, adsorbed SALEEM HANNON MD [facility] Payers Date Payer Category Payer Unknown [id number] 1975 Unknown [id number] Social History Date Type Detail Facility Tobacco smoking status No Smoking Status Entered [facility] Sex Assigned At Male [facility] Functional Status Date Assessment Result Facility 01-21-2023 Functional Status Assistive Device None A [facility] Mental Status Date Assessment Result Facility 01-21-2023 Mental Status Oriented x 4 [facility] Discharge instructions 01-21-2023 Note Date & Type [...] a problem: Bleeding that soaks the dressing [place] fluid weeping from the wound Increased drainage [...] increased fatigue, or a loss of appetite 3102-5[address] [employer]. [address] [place] [address]. All rights reserved. This information is not [...] re-open Bleeding not controlled by direct pressure 7018-[address] [employer] [place] [address]. All rights reserved. This information is not intended as a substitute for professional medical care. Always follow your healthcare professional's instructions. Follow Up Care 01/21/2023 10:04:23 With:TRACI OLSEN DO Address: [address] [place] [id number] [phone] When: Unknown Comments:Follow-up in 10 days for suture removal. [facility] Emergency department Discharge summary 01-21-2023 Note Date & Type Note Facility 01-21-2023 Emergency department Discharge summary Discharge Instructions Thank you for allowing [facility] to assist you with your healthcare needs. The following is important discharge information regarding your hospital visit. Diagnosis from Today's Visit Laceration of forearm Arm laceration What to Do Next Instructions from Your Care Team No qualifying data available. Post Acute Orders No qualifying data available. You Need to Schedule the Following Appointments Follow Up with TRCAI OLSEN DO When Why: Follow-up in 10 days for suture removal. Where: [address] [place] [phone] Allergies NKA Immunizations This Visit Given Vaccine [...] a problem: Bleeding that soaks the dressing [place] fluid weeping from the wound Increased drainage [...] increased fatigue, or a loss of appetite 4810-2733 [employer]. [address] [place] [address]. All rights reserved. This information is not intended as a substitute for professional medical care. Always follow your healthcare professional's instructions. Extremity Laceration (Sutures, Lulú, or Tape) A [...] re-open Bleeding not controlled by direct pressure 4394-[address] [employer]. [address] [place] [address], [place] [address]. All rights reserved. This information is not intended as a substitute for professional medical care. Always follow your healthcare professional's instructions. Additional Information VACCINATE! IT SAVES LIVES! Members of the community who have not yet received the COVID-19 vaccine and would like to receive it can visit one of [facility] vaccine clinics. There are many vaccine clinic locations within the [facility]. For locations and available times, please visit [email or web address] It is important to note that some COVID mobile vaccine clinics are held outdoors and may be canceled in rainy or stormy conditions. To learn more about pediatric vaccinations (ages 5-11), we invite you to visit the [facility] webpage. [email or web address] To learn more about the COVID-19 vaccine, we invite you to visit the CDC website for a list of frequently asked questions. https://www.cdc.gov/coronavirus/2 019-ncov/vaccines/faq.html [facility] website Patient Portal Access Instructions: Stay connected with your healthcare team and access your personal medical information anytime with the [facility] website Patient Portal. If you would like a full copy of your medical records please contact the [facility] Medical Records Department Monday through Monday between 8a.m. and 4:30p.m. Please follow the directions below to access the portal: 1.Access the email account you provided upon registration to the hospital.2.Look for an invitation email from [facility].3.Open the email and access the invitation link: Accept Invitation to [facility] website4.Fill in the required aguilar to create your account. Sign into [email or web address] with your username and password that you [...] you will allow to register on the [facility] website Patient Portal for access to your information. You can also access the [facility] Patient Portal on the [employer] gunnar. Simply click on Health Records under Health Data and then click on the [place] logo. HOW TO SAFELY DISPOSE OF PRESCRIPTION [...] Call your local pharmacy or go to [email or web address] to find one close to you.3.Make use of household items: Use cat litter or old coffee grounds to dispose medications if other options are not available. Mix your drugs with these household products, seal them in an airtight container and throw it into the garbage. Call [facility]: [phone] to be sure your drugs can be [...] aware that I should contact my doctor. 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 Evaluation + Plan note Note Date & Type Note Facility Evaluation + Plan note No data available for this section [facility] Summary Purpose Family History No Family History Records FoundNo Family History Records Found Advance Directives No Advanced Directives Records FoundNo Advanced Directives Records Found Additional Source Comments (unrecognized sect ion and content) No Status Records FoundNo Status Records Found INFORMATION SOURCE (unrecogn ized section and content) DATE CREATED AUTHOR AUTHOR'S ORGANIZ ATION 01/23/2023 [facility] ([place]) Patient Care team informatio n (unrecognized section and content) Care Team Personnel Name: SALEEM HANNON MD Position: ED Physician Member Role: ED Physician Address: Address: [address] [place] [id number] Name: Marie Zamarripa RN Position: AO RN [...] BE BASED ON THE PRIMARY CLINICAL RECORDS. [facility]. provides no warranty or guarantee of the accuracy or completeness of information in this document.
[2023-08-23 13:02] LABS: AST(SGOT) 53 U/L (15-37); Alanine Aminotransfer ALT/SGPT 130 U/L (16-61); Albumin, Serum 4.3 g/dL (3.2-5.0); Alkaline Phosphatase 136 U/L (45-117); Bilirubin, Direct 0.16 mg/dL (0.00-0.30); Globulin 3.5 g/dL (2.2-4.2); Protein, Total 7.8 g/dL (6.4-8.2)
== END | disposition home or self-care (01) ==
LOC: BFHLAB 09:20
PROVIDERS: PCP Nurse Practitioner Family; Visit Provider Nurse Practitioner Family
DX: R79.89 Other specified abnormal findings of blood chemistry (principal)
CPT/HCPCS: 36415; 80076

== ENCOUNTER 2023-08-29 06:23 | Day surgery (SDC) | payer OTHER, SELFPAY ==
--- OUTSIDE RECORDS SUMMARY | 2023-08-29 06:25 | XMS RPT_ITS | CCD ---
Author Name Unknown Address [address] [place] [id number] Organization [facility] Care Team Providers Care Leather Currier Name Role Phone KHADRA GARCIA Admitting Unavailable [...] Location SALEEM HANNON MD [facility] 01-21-2023 10:07-0400 Body temperature 97.7 [degF] SALEEM HANNON MD [facility] 01-21-2023 10:07-0400 Diastolic Blood Pressure Non-Invasive 95 1 SALEEM HANNON MD [facility] 01-21-2023 10:07-0400 Heart rate 71 /min SALEEM HANNON MD [facility] 01-21-2023 10:07-0400 Respiratory rate 16 /min SALEEM HANNON MD [facility] 01-21-2023 10:07-0400 Systolic Blood Pressure Non-Invasive 160 1 SALEEM HANNON MD [facility] Encounters Encounter Date Encounter Type Care Provider Facility Start: 01-21-2023 End: 01-21-2023 Emergency department patient visit SALEEM HANNON MD Facility:B Start: 01-21-2023 End: 01-21-2023 Emergency department patient visit SALEEM HANNON MD [facility] Start: 10-17-2019 End: 10-17-2019 Patient encounter procedure KHADRA Wasserman [facility] Immunizations Immunization Date Immunization Notes Care Provider Fa cility 01-21-2023 tetanus toxoid, redu torie diphtheria toxoid, and acellular pertussis vaccine, adsorbed SALEEM HANNON MD [facility] Payers Date Payer Category Payer Unknown [id number] 1975 Unknown [id number] Social History Date Type Detail Facility Tobacco smoking status No Smoking Status Entered [facility] Sex Assigned At Male [facility] Functional Status Date Assessment Result Facility 01-21-2023 Functional Status Assistive Device None A [facility] Mental Status Date Assessment Result Facility 01-21-2023 Mental Status Oriented x 4 [facility] Discharge instructions 01-21-2023 Note Date & Type [...] a problem: Bleeding that soaks the dressing [place] fluid weeping from the wound Increased drainage [...] increased fatigue, or a loss of appetite [phone] [employer]. [address] [place] [address]. All rights reserved. This information is not [...] re-open Bleeding not controlled by direct pressure [phone] [employer]. [address] [place] [address]. All rights reserved. This information is not intended as a substitute for professional medical care. Always follow your healthcare professional's instructions. Follow Up Care 01/21/2023 10:04:23 With:TRACI OLSEN DO Address: [address] [place] [id number] [phone] When: Unknown Comments:Follow-up in 10 days for suture removal. [facility] Emergency department Discharge summary 01-21-2023 Note Date & Type Note Facility 01-21-2023 Emergency department Discharge summary Discharge Instructions Thank you for allowing [facility] to assist you with your healthcare needs. [...] in 10 days for suture removal. Where: [address] [place] [phone] Allergies NKA Immunizations This Visit Given Vaccine [...] a problem: Bleeding that soaks the dressing [place] fluid weeping from the wound Increased drainage [...] increased fatigue, or a loss of appetite [phone] [employer]. [address] [place] [address]. All rights reserved. This information is not [...] re-open Bleeding not controlled by direct pressure [phone] [employer]. [address] [place] [address], [place] [address]. All rights reserved. This information is not intended as a substitute for professional medical care. Always follow your healthcare professional's instructions. Additional Information VACCINATE! IT SAVES LIVES! Members of the community who have not yet received the COVID-19 vaccine and would like to receive it can visit one of [facility] vaccine clinics. There are many vaccine clinic locations within the [facility]. For locations and available times, please visit [email or web address] It is important to note that some COVID mobile vaccine clinics are held outdoors and may be canceled in rainy or stormy conditions. To learn more about pediatric vaccinations (ages 5-11), we invite you to visit the [facility] webpage. [email or web address] To learn more about the COVID-19 vaccine, we invite you to visit the CDC website for a list of frequently asked questions. https://www.cdc.gov/coronavirus/2 019-ncov/vaccines/faq.html [facility] Patient Portal Access Instructions: Stay connected with your healthcare team and access your personal medical information anytime with the [facility] Patient Portal. If you would like a full copy of your medical records please contact the [facility] Medical Records Department Monday through Monday between 8a.m. and 4:30p.m. Please follow the directions below to access the portal: 1.Access the email account you provided upon registration to the hospital.2.Look for an invitation email from [facility].3.Open the email and access the invitation link: Accept Invitation to [facility]4.Fill in the required aguilar to create your account. Sign into www.[employer] with your username and password that you [...] you will allow to register on the [facility] Patient Portal for access to your information. You can also access the [facility] Patient Portal on the [employer] gunnar. Simply click on Health Records under Health Data and then click on the [employer] logo. HOW TO SAFELY DISPOSE OF PRESCRIPTION [...] Call your local pharmacy or go to [email or web address] to find one close to you.3.Make use of household items: Use cat litter or old coffee grounds to dispose medications if other options are not available. Mix your drugs with these household products, seal them in an airtight container and throw it into the garbage. Call [facility]: [phone] to be sure your drugs can be [...] aware that I should contact my doctor. Patient/Appraisal Coordinator Signature: Date/Time: Relationship to Patient: ____ Witness Name/Signature: Date/Time: [facility] Evaluation + Plan note Note Date & Type Note Facility Evaluation + Plan note No data available for this section [facility] Summary Purpose Family History No Family History Records FoundNo Family History Records Found Advance Directives No Advanced Directives Records FoundNo Advanced Directives Records Found Additional Source Comments (unrecognized sect ion and content) No Status Records FoundNo Status Records Found INFORMATION SOURCE (unrecogn ized section and content) DATE CREATED AUTHOR AUTHOR'S ORGANIZ ATION 01/23/[address] [facility] ([place]) Patient Care team informatio n (unrecognized section and content) Care Team Personnel Name: SALEEM HANNON MD Position: ED Physician Member Role: ED Physician Address: Address: [address] [place] [id number] Name: Marie Zamarripa RN Position: AO [...] BE BASED ON THE PRIMARY CLINICAL RECORDS. [facility] [employer] provides no warranty or guarantee of the accuracy or completeness of information in this document.
[2023-08-29 06:39] VITALS: BP 118/66; PULSE 71; RESP 18; TEMP 36; O2SAT 99; BMI 34.7
[2023-08-29] MEDS: Lactated Ringers 1,000 ML 15 ML IV (06:50)
--- NOTE | 2023-08-29 06:59 | HP.PCM_ITS ---
History and Physical Date of Admission: 08/29/23 Intake Vital Signs 07/20/2406:01 08/03/2407:23 Height 5 ft 7 in 5 ft 7 in Weight: 227 lb BMI 35.5 BP 138/80 H Blood Pressure Location Rt brachial Position Sitting Respiration 18 Pulse 70 Pulse Source Monitor Temp 97.9 F Temp Source Temporal Pulse Oximetry (%) 99 Oxygen Delivery Method room air Intake Visit Reasons: Rectal Bleeding Chief Complaint: constipation Preassembler And Inspector Required: No Is patient in pain?: No Allergies No Known Allergies Allergy (Verified 08/03/23 08:24) Medications lisinopril 2.5 mg tablet 2.5 mg PO DAILY 06/27/15 [History Confirmed 08/03/23] pantoprazole 40 mg tablet,delayed release (Protonix) 40 mg PO DAILY 4 weeks #28 tabs 07/20/23 [Rx Confirmed 08/03/23] glimepiride 2 mg tablet 2 mg PO DAILY 08/03/23 [History Confirmed 08/03/23] PFSH Medical History (Updated 08/03/23 @ 11:[address] Brayden Valdez MD) Diabetes Hypertension Surgical History (Updated 08/03/23 @ 08:22 by Krista Young LPN) Hx of appendectomy Hx of cholecystectomy Social History (Updated 08/03/23 @ 08:23 by Krista Young LPN) Smoking Status: Never smoker alcohol intake: current substance use type: does not use HPI HPI HPI: Patient is a 48-year-old male here for colonoscopy. He says that he had a c hange in bowel habits about 2 months ago and started having more severe constipation. Over the last week he has noticed some blood in his stool but he says he does have a hemorrhoid that is being bothered by his constipation as well. He takes fiber but he does not take any laxatives. He says that sometimes he will go 3 to 4 days without having a bowel movement. ROS General General: Yes fatigue Endo Endocrine: Yes diabetes mellitus Musc Musculoskeletal: Yes back problems and arthritis Cardio Cardiovascular: Yes high blood pressure Resp Respiratory: Yes cough Gastro Gastrointestinal: Yes abdominal pain, Yes constipation, Yes blood in stool and Yes hemorrhoids Exam Const General: cooperative Orientation: alert and oriented x3 HENMT Head: normal to inspection Neck Neck: normal visual inspection and full ROM Chest Chest palpation & inspection: normal inspection of the chest Resp Effort & Inspection: normal respiratory effort Auscultation: clear to auscultation bilaterally Cardio Rate: regular rate Rhythm: regular rhythm GI Inspection: non-distended Palpation: soft and nontender Skin General: no rashes or lesions noted Neuro General: patient alert and patient oriented x3 Extrem General: full ROM Psych Appearance: grossly normal Mental Status: mental status grossly normal Assessment and Plan Assessment and Plan (1) Rectal bleeding: Status: Acute (2) Constipation: Status: Acute Qualifiers: Constipation type: unspecified constipation type Qualified Code(s): K59.00 - Constipation, unspecified Orders: Orders Colonoscopy Today Dr. Brayden Valdez MD Colonoscopy 08/29/23 Adriana CUTLER, PA-C Plan The patient is having severe constipation which is likely causing irritation of his hemorrhoids and the blood in his stool. I recommend colonoscopy to evaluate as he has never had one. I explained endoscopy in detail to the patient. I explained the risks including but not limited to stroke or heart attack with anesthesia, perforation of the GI tract, bleeding, infection. I explained that any of these could necessitate further emergency surgery. The patient understands and all questions were answered sufficiently. The patient wishes to proceed with procedure. I also discussed taking MiraLAX on a regular basis with him. He will try this as well. Brayden Valdez MD Pager: [facility] [address] [place] [address], [address] [place] [address] Office: I have examined the patient and the H&P has been reviewed. There are no clinical changes since date of exam.
[2023-08-29 07:11] LABS: Bedside Glucose 142 mg/dL (74-106)
[2023-08-29 08:14] VITALS: BP 116/68; BP 118/66; PULSE 75; RESP 14; TEMP 36.8; O2SAT 99
--- NOTE | 2023-08-29 08:15 | OP.COLON_ITS ---
Patient Name: Evan Murguia Procedure Date: 08/29/2023 7:52 AM Date of : 1975 Age: 48 Procedure: Colonoscopy Indications: Rectal bleeding Providers: Brayden Valdez MD Referring MD: Yaniv Nazario Medicines: Propofol per Anesthesia Patient Profile: This is a 48 year old male. Refer to note in patient chart for documentation of history and physical. Last Colonoscopy: none. The patient's first colonoscopy is today. Complications: No immediate complications. Procedure: Pre-Anesthesia Assessment: - Prior to the procedure, a History and Physical was performed, and patient medications and allergies were reviewed. The patient's tolerance of previous anesthesia was also reviewed. The risks and benefits of the procedure and the sedation options and risks were discussed with the patient. All questions were answered, and informed consent was obtained. Prior Anticoagulants: The patient has taken no anticoagulant or antiplatelet agents. After reviewing the risks and benefits, the patient was deemed in satisfactory condition to undergo the procedure. After I obtained informed consent, the scope was passed under direct vision. Throughout the procedure, the patient's blood pressure, pulse, and oxygen saturations were monitored continuously. The Colonoscope was introduced through the anus and advanced to the cecum, identified by appendiceal orifice and ileocecal valve. The colonoscopy was performed without difficulty. The patient tolerated the procedure well. The quality of the bowel preparation was good. The ileocecal valve, appendiceal orifice, and rectum were photographed. Scope In: 8:02:11 AM Scope Withdrawal Time 0 hours 4 minutes 56 seconds Scope Out: 8:08:37 AM Total Procedure Duration Time 0 hours 6 minutes 26 seconds Findings: The entire examined colon appeared normal on direct and retroflexion views. Multiple small-mouthed diverticula were found in the sigmoid colon. Impression: - The entire examined colon is normal on direct and retroflexion views. - No specimens collected. Recommendation: - Discharge patient to home. - Resume previous diet. - Continue present medications. - Repeat colonoscopy in 10 years for screening purposes. Procedure Code(s): --- Professional --- 85355, Colonoscopy, flexible; diagnostic, including collection of specimen(s) by brushing or washing, when performed (separate procedure) Diagnosis Code(s): --- Professional --- K62.5, Hemorrhage of anus and rectum CPT copyright 2021 [employer]. All rights reserved. The codes documented in this report are preliminary and upon medical records coder review may be revised to meet current compliance requirements. Brayden Valdez MD 08/29/2023 8:15:37 AM This report has been signed electronically. Number of Addenda: 0 Note Initiated On: 08/29/2023 7:52 AM
[2023-08-29 08:16] VITALS: BP 117/79; BP 118/66; PULSE 70; RESP 18; O2SAT 98
--- NOTE | 2023-08-29 08:16 | OP.CCLET_ITS ---
08/29/2023 Yaniv Nazario Re : Colonoscopy procedure for Evan Murguia [place] This procedure was performed on Tuesday, August 29, 2023. My impressions and recommendations are as follows: Impressions : - The entire examined colon is normal on direct and retroflexion views. - No specimens collected. Recommendations : - Discharge patient to home. - Resume previous diet. - Continue present medications. - Repeat colonoscopy in 10 years for screening purposes. My findings are described in the full procedure note, which is enclosed. If I can be of further assistance, please feel free to contact me at Doctor phone number(s): , Work: . Sincerely, Brayden Valdez MD 08/29/2023 8:15:37 AM This report has been signed electronically.
[2023-08-29 08:20] VITALS: BP 105/71; BP 118/66; PULSE 65; PULSE 73; RESP 18; O2SAT 100
[2023-08-29 08:28] VITALS: BP 114/78; BP 118/66; PULSE 61; RESP 16; TEMP 36.7; O2SAT 99
[2023-08-29 08:42] VITALS: BP 118/66
== END 2023-08-29 08:51 | disposition home or self-care (01) ==
LOC: EN 06:23 → AC 06:23
PROVIDERS: PCP Nurse Practitioner Family; Referring Provider Nurse Practitioner Family; Visit Provider Surgery
PROC: 0DJD8ZZ Inspection of Lower Intestinal Tract, Via Natural or Artificial Opening Endoscopic (ICD-10-PCS; CPT 45378; principal; 2023-08-29 07:25)
DX: K62.5 Hemorrhage of anus and rectum (principal); E11.9 Type 2 diabetes mellitus without complications; I10 Essential (primary) hypertension; Z79.84 Long term (current) use of oral hypoglycemic drugs; Z79.899 Other long term (current) drug therapy; Z90.49 Acquired absence of other specified parts of digestive tract; K59.00 Constipation, unspecified; K57.30 Diverticulosis of large intestine without perforation or abscess without bleeding
CPT/HCPCS: 45378; 82962; J7120; J2405

== ENCOUNTER → 2024-10-01 | Outpatient (CLI) | payer SELFPAY ==
[2024-10-01 12:10] LABS: Absolute Lymphocyte Count 1.61 X10^3/uL (0.83-4.51); Absolute Neutrophil Count 3.1 X10^3/uL (2.0-7.7); Basophil# 0.05 X10^3/uL; Basophil% 0.9 % (0-1); Eosinophils% 1.9 % (0-5); Hematocrit 42.6 % (40-54); Hemoglobin 14.7 g/dL (13.0-16.5); Lymphocyte # 1.61 X10^3/ul (0.83-4.51); Lymphocyte % 30.1 % (19-41); Mean Corp Hgb Conc 34.5 g/dL (32-36); Mean Corpuscular Hgb 29.6 pg (27.0-32.0); Mean Corpuscular Volume 85.7 fL (80-94); Mean Platelet Vol. 11.3 fl (6.2-12.0); Monocyte# 0.48 X10^3/uL; NRBC Flagged by Analyzer 0 % (0-5); Neutrophil # 3.09 X10^3/uL (2.7-7.7); Neutrophil % 57.7 % (47-70); Platelet Count 185 K/mm3 (150-450); RBC Distribution Width CV 12.4 % (11.6-14.6); RBC Distribution Width SD 38.4 fl (35.1-43.9); Red Blood Count 4.97 M/mm3 (4.6-6.2); White Blood Count 5.4 K/mm3 (4.4-11.0)
[2024-10-01 12:38] LABS: ALB/GLOB Ratio 1.8 RATIO (0.9-2.4); AST(SGOT) 30 U/L (<=37); Alanine Aminotransfer ALT/SGPT 66 U/L (<=46); Albumin, Serum 4.9 g/dL (3.5-5.0); Alkaline Phosphatase 77 U/L (40-129); Anion Gap 12 (5-15); BUN 22 mg/dL (4-19); BUN/Creat Ratio 20.2 RATIO (10-20); Calcium,Total 10.3 mg/dL (7.6-11.0); Carbon Dioxide 24.4 mmol/L (21.0-32.0); Chloride 103 mmol/L (98-108); Cholesterol 246 mg/dL (<=200); Creatinine, Serum 1.08 mg/dL (0.70-1.20); EST Glomerular Filtration Rate 85 (>60); Globulin 2.8 g/dL (2.2-4.2); Glucose 122 mg/dL (70-99); High Density Lipoprotein 47 mg/dL; Low Density Lipoprotein Calc. 146 mg/dL; PSA,Total - Annual Screen 0.49 ng/mL (0.02-4.00); Potassium 4.5 mmol/L (3.3-5.1); Protein, Total 7.6 g/dL (5.9-8.4); Sodium Level 139 mmol/L (133-145); Total Bilirubin 0.46 mg/dL (0.00-1.30); Triglycerides 267 mg/dL; Very Low Density Lipoprotein 53 mg/dL (5-40); cholesterol:hdl ratio screen 5.29
== END | disposition home or self-care (01) ==
LOC: BFHLAB 08:42
PROVIDERS: PCP Nurse Practitioner Family; Visit Provider Nurse Practitioner Family
DX: Z00.01 Encounter for general adult medical examination with abnormal findings (principal); Z12.5 Encounter for screening for malignant neoplasm of prostate
CPT/HCPCS: 36415; 80053; 80061; 84153; 85025; G0103